=== PATIENT | male | born 1965 | race Caucasian/White ===

== ENCOUNTER 2025-01-17 21:06 | Emergency (ER) | payer MEDICAID ==
[~2025-01-17] VITALS: Ht 167.6 cm; Wt 77.0 kg
[2025-01-17 21:08] VITALS: O2SAT 99
[2025-01-17 22:06] LABS: BASOPHILS % 0.6 % (0.0-2.0); EOSINOPHILS % 5.0 % (0.0-5.0); HEMATOCRIT. 40.4 % (42.0-52.0); HEMOGLOBIN. 13.6 g/dL (14.0-18.0); LYMPHOCYTES % 59.0 % (20.0-50.0); MEAN PLATELET VOLUME 6.7 fl (7.4-10.4); MONOCYTES % 9.0 % (2.0-8.0); NEUTROPHILS % 26.4 % (40.0-76.0); PLATELET 201 x1000/uL (130-400); RED BLOOD CELL COUNT 4.41 mill/uL (4.7-6.1); RED CELL DISTRIBUTION WIDTH 15.4 % (11.6-14.6)
[2025-01-17 22:08] LABS: CREATININE 0.7 mg/dL (0.6-1.3)
[2025-01-17 22:09] LABS: ETHANOL BLOOD 237 mg/dL (<10); UREA NITROGEN BLOOD < 5 mg/dL (9-23)
[2025-01-17 22:10] LABS: PROTEIN TOTAL 8.2 g/dL (6.0-8.3)
[2025-01-17 22:11] LABS: ASPARTATE AMINOTRANSFERASE 52 IU/L (<34); BILIRUBIN DIRECT 0.1 mg/dL (<=3.0); BILIRUBIN TOTAL 0.4 mg/dL (0.1-1.0)
[2025-01-17] MEDS: ONDANSETRON HCL 4MG/2ML INJ IV ONE (23:07)
[2025-01-17] MEDS: VISCOUS LIDOCAINE 2% 15 ML UDC MM ONE (23:07)
[2025-01-17] MEDS: PANTOPRAZOLE SODIUM 40 MG/VIAL IV ONE (23:07)
[2025-01-17] MEDS: MAGNESIUM/ALUMINUM HYDROXIDE/SIMETHICONE 30ML UDC PO ONE (23:07)
[2025-01-17] MEDS: MORPHINE SULFATE 2 MG/ML INJ (NOT FOR IM USE) IV ONE (23:08)
[2025-01-18 00:17] LABS: TROPONIN I HIGH SENSITIVITY 9 ng/L (3.0-53)
[2025-01-18 00:27] LABS: *AMPHETAMINES SCREEN URINE NEGATIVE (NEGATIVE); *BARBITURATES SCREEN URINE NEGATIVE (NEGATIVE); *BENZODIAZEPINES SCREEN URINE NEGATIVE (NEGATIVE); *COCAINE SCREEN URINE NEGATIVE (NEGATIVE); CANNABINOID URINE SCREEN NEGATIVE (NEGATIVE); ECSTASY MDMA SCREEN URINE NEGATIVE (NEGATIVE); METHADONE URINE SCREEN NEGATIVE (NEGATIVE); OPIATES URINE SCREEN NEGATIVE (NEGATIVE); PHENCYCLIDINE URINE SCREEN NEGATIVE (NEGATIVE)
[2025-01-18] MEDS ORDERED: PROT40 MT (01:40)
[2025-01-18] MEDS ORDERED: ONDA4TAB50 MT (01:40)
[2025-01-18] MEDS ORDERED: MAG355OR21 MT (01:40)
[2025-01-18 01:48] VITALS: BP 127/68; PULSE 74; RESP 13; TEMP 36.6; O2SAT 99
[2025-01-18 01:54] LABS: CLARITY URINE CLEAR (CLEAR); COLOR URINE YELLOW (YELLOW); GLUCOSE URINE NEGATIVE (NEGATIVE); KETONES URINE NEGATIVE (NEGATIVE); LEUKOCYTE ESTERASE URINE 1+ (NEGATIVE); NITRITE URINE NEGATIVE (NEGATIVE); OCCULT BLOOD URINE NEGATIVE (NEGATIVE); PH URINE 6.0 (4.5-8.0); PROTEIN URINE NEGATIVE (NEGATIVE); SPECIFIC GRAVITY URINE 1.005 (1.005-1.030); UROBILINOGEN URINE 0.2 E.U./dL (0.2-1.0)
[2025-01-18 01:55] LABS: BACTERIA URINE TRACE; RBC URINE 0-2 /hpf (0-2); SQUAMOUS EPITHELIAL CELL URINE FEW /lpf (RARE/1+)
[2025-01-18] MEDS ORDERED: IOHEXOL-300 100 ML BOTTLE ONE (02:58)
== END 2025-01-18 02:14 | disposition home or self-care (01) ==
LOC: ER 21:06 → CMPBEDREQ 01-18 08:40
DX: K29.70 Gastritis, unspecified, without bleeding (principal); R10.13 Epigastric pain; R11.2 Nausea with vomiting, unspecified; F10.229 Alcohol dependence with intoxication, unspecified; Z79.899 Other long term (current) drug therapy; Y90.9 Presence of alcohol in blood, level not specified
CPT/HCPCS: 80076; 80305; 80048; 81003; 80320; 83690; 85025; 84484; 36415; 71045; 96374; 96375; 99285; 74177; 93005; J2405; J2470; Q9967; J2270; G0480